=== PATIENT | male | born 1970 | race Caucasian/White ===

== ENCOUNTER 2018-05-18 19:19 | Emergency (ER) | payer BC ==
[2018-05-18 19:31] VITALS: BP 135/91; PULSE 89; O2SAT 96
--- NOTE | 2018-05-18 20:25 | ERPHSYRPT ---
- History of Present Illness Time Seen by Provider: 05/18/18 20:20 Source: patient Exam Limitations: no limitations Patient Subjective Stated Complaint: twisted right ankle and a large man fell on top of it Triage Nursing Assessment: Pt c/o of twisting right ankle and a large man fell on top of it, lateral side is swollen and painful to turn, vitals wnl, rates pain 3/10, pulses normal, denies any other issues Physician History: The patient is a 47-year-old male with his complaining that [place] When he slipped another person fell on his right leg causing his right ankle to twist. He has some mild swelling and pain to the outside of his right ankle. His past medical history is unremarkable. Occurred: this evening Reason for Fall: slipped, fell from standing pos Injuries/Pain Location: lower extremity (right ankle) Loss of Consciousness: no loss of consciousness Quality: aching Severity of Pain-Max: mild Severity of Pain-Current: mild Modifying Factors: Improves With: nothing Associated Symptoms (Fall): trouble walking Allergies/Adverse Reactions: No Known Drug Allergies Allergy (Verified 05/18/18 19:30) Home Medications: No Reportable Medications [No Reported Medications] 05/18/18 [History] - Review of Systems Constitutional: No Fever, No Chills Eyes: No Symptoms Ears, Nose, & Throat: No Symptoms Respiratory: No Cough, No Dyspnea Cardiac: No Chest Pain, No Edema, No Syncope Abdominal/Gastrointestinal: No Abdominal Pain, No Nausea, No Vomiting, No Diarrhea Genitourinary Symptoms: No Dysuria Musculoskeletal: Fall, Injury, Joint Pain, Joint Swelling Skin: No Rash Neurological: No Dizziness, No Focal Weakness, No Sensory Changes Psychological: No Symptoms Endocrine: No Symptoms Hematologic/Lymphatic: No Symptoms Immunological/Allergic: No Symptoms All Other Systems: Reviewed and Negative - Past Medical History Pertinent Past Medical History: No - Past Surgical History Past Surgical History: No - Social History Smoking Status: Current every day smoker How long have you smoked: 35 years Drug Use: none Patient Lives Alone: No - Nursing Vital Signs Nursing Vital Signs: Initial Vital Signs Temperature 97.3 F 05/18/18 19:22 Pulse Rate 89 05/18/18 19:22 Blood Pressure 135/91 05/18/18 19:22 O2 Sat by Pulse Oximetry 96 05/18/18 19:22 Pain Scale Pain Intensity 3 - [place] Coma Score Best Eye Response ([place]): (4) open spontaneously Best Verbal Response ([place]): (5) oriented Best Motor Response ([place]): (6) obeys commands [place] Total: 15 - Physical Exam General Appearance: no apparent distress, alert Head Injury: no evidence of injury Eye Exam: PERRL/EOMI ENT Exam: airway nml Neck Exam: normal inspection, No tenderness Respiratory/Chest Exam: normal breath sounds, No chest tenderness, No respiratory distress Cardiovascular Exam: normal heart sounds, regular rate/rhythm Gastrointestinal Exam: soft, No tenderness, No distention, No guarding, No ecchymosis Rectal Exam: not done Back Exam: normal inspection, No vertebral tenderness Extremity Exam: swelling, tenderness (mild swelling and tenderness to right lateral malleolus) Neurologic Exam: alert, oriented x 3, cooperative, sensation nml, No motor deficits Skin Exam: normal color, warm, dry SpO2 Interpretation: normal SpO2: 96 Oxygen Delivery: Room Air - Radiology Exams Right Ankle X-ray Interpretation: Interpreted by me, Negative, No Fracture Ordered Tests: Active Orders 24 hr Category Date Time Status ANKLE (3 VIEWS) Stat Exams 05/18/18 19:48 Taken - Departure Time of Disposition: 20:27 Departure Disposition: Home Clinical Impression: Right ankle sprain Condition: Stable Critical Care Time: No Referrals: JIMMY IYER MD [Primary Care Provider] - Additional Instructions: You have a mild sprained ankle. You were given Toradol 60 mg IM in the ER. Keep ice on the area for 10-15 minutes 2 or 3 times a day. Try to keep your ankle elevated as much as possible. Take Tylenol and ibuprofen as needed. Follow-up as needed.
[2018-05-18] MEDS ORDERED: TORAdol 30 mg Injection IM ONE (20:28)
[2018-05-18] MEDS ORDERED: TORAdol 30 mg Injection ONE (20:33)
--- NOTE | 2018-05-19 08:35 | XRAY ---
Indication: Pain and swelling following twisting injury. Comparison: None 3 views of the right ankle demonstrates mild anterolateral soft tissue swelling and tiny heel spurs. No other bony, articular, or soft tissue abnormalities.
== END 2018-05-18 20:38 | disposition home or self-care (01) ==
LOC: ED 19:19
DX: S93.401A Sprain of unspecified ligament of right ankle, initial encounter (principal); W50.0XXA Accidental hit or strike by another person, initial encounter; Y93.16 Activity, rowing, canoeing, kayaking, rafting and tubing
CPT/HCPCS: 73610; 96372; 99284; J1885